=== PATIENT | male | born 1940 | race Caucasian/White ===

== ENCOUNTER 2019-01-06 21:46 | Inpatient (IN) ==
[2019-01-06] MEDS ORDERED: *HR* Ticagrelor 90 MG TABLET ONE (21:49)
[2019-01-06] MEDS ORDERED: *HR* Heparin 5,000 UNIT/ML VIAL ONE (21:49)
[2019-01-06] MEDS ORDERED: *HR* Ticagrelor 90 MG TABLET PO ONE (21:52)
--- NOTE | 2019-01-06 21:56 | Emergency Department Note ---
Disposition Clinical Impression: STEMI (ST elevation myocardial infarction) Qualifiers: Involved coronary artery: right coronary artery Qualified Code(s): I21.11 - ST elevation (STEMI) myocardial infarction involving right coronary artery Disposition: Admitted As Inpatient Condition: Fair Time of Disposition: 21:56 Chest Pain HPI - General Stated Complaint: STEMI Time Seen by Provider: 01/06/19 21:47 Source: patient, family, EMS Mode of arrival: EMS Limitations: no limitations Vital Signs Reviewed: Yes Nursing Notes Reviewed: Yes - History of Present Illness HPI Narrative: Patient presents to the ED as an [id number] STEMI alert. We were faxed an EKG that showed inferior STEMI. Patient is 78 years old with no previous history of FL presenting with 2 days of centralized chest pressure and heaviness. States that he thought it was reflux. It radiates into both of his jaws and into his left shoulder. Does seem to be worse with exertion. Has made him extremely fatigued and tired over the last couple of days. Some nausea but no vomiting. He does have a history of A. fib and is on Eliquis, but has not taken his medication in the last 48 hours - Related Data Home Medications Medication Instructions Recorded Confirmed Irbesartan [Avapro] 300 mg PO DAILY 05/28/16 01/06/19 Omeprazole [PriLOSEC] 40 mg PO DAILY 05/28/16 01/06/19 amLODIPine [Norvasc] 10 mg PO DAILY 05/28/16 01/06/19 hydroCHLOROthiazide 25 mg PO DAILY 05/28/16 01/06/19 [Hydrochlorothiazide] Apixaban [Eliquis] 5 mg PO BID 02/15/18 01/06/19 Aspirin [Lo-Dose Aspirin EC] 81 mg PO HS 01/06/19 01/06/19 Metoprolol XL (24 HR) Succ [Toprol 12.5 mg PO BID 01/06/19 01/06/19 Xl] Rosuvastatin Calcium 5 mg PO HS 01/06/19 01/06/19 Tamsulosin [Flomax] 0.4 mg PO HS 01/06/19 01/06/19 Allergies Allergy/AdvReac Type Severity Reaction Status Date / Time No Known Allergies Allergy Verified 05/28/16 07:47 Review of Systems: As reviewed in the HPI. All other systems reviewed are negative or normal. Chest Pain PMH - Past Medical History Medical history: Reports: atrial fibrillation, other Psychiatric history: Reports: no psych history - Social History Smoking Status: Former smoker Alcohol use: Reports: unknown Drug use: Reports: none Physical Exam CONSTITUTIONAL: [well appearing, alert and in no acute distress] EYES: [EOMI, clear conjunctiva, PERRLA] HENT: [Normocephalic, atraumatic, moist mucus membranes, normal oropharynx] NECK: [normal inspection, full ROM, trachea midline, no obvious swelling] PULMONARY: [normal lung sounds bilaterally, normal chest rise and fall, no respiratory distress or stridor, no wheezes, no rales, no rhonchi CARDIOVASCULAR: [Rate controlled A. fib, ST segment elevation seen on the monitor, normal heart sounds, no murmurs, distal extremities are warm and well perfused] GASTROINSTESTINAL: [soft, non-tender, non-rigid, non-distended, no guarding, no rebound, normal bowel sounds] GENITOURINARY/RECTAL: [deferred] NEUROLOGIC: [Alert, oriented x3, normal speech, moves all extremities] EXTREMITIES: [Normal inspection, full ROM, no tenderness, trace pedal edema, normal capillary refill] MUSCULOSKELETAL: [no gross deformities, atraumatic] SKIN: [No cyanosis, no diaphoresis, normal color, warm, no rash] PSYCHIATRIC: [normal mood and affect] Course Course Narrative: Patient presenting as an [id number] STEMI alert. We contacted the byproducts extractor, Dr. Decker. EMS states that they were about 30 minutes out. He received aspirin in the field. We will hold off on any nitroglycerin due to the large inferior involvement. He did receive morphine. Awaiting his arrival. - Consultations Consultation #1: We called Dr. Decker back to let him know that the patient has arrived sig nificantly earlier than expected. Repeat EKG shows atrial fibrillation with a rate of 70 and worsening inferior ischemic changes. Time: 21:51 Chest Pain - Medical Records Medical records reviewed: Yes I reviewed the patient's medical records. - Lab Data Lab results reviewed: Yes I reviewed the patient's lab results. - Radiology Data Radiology results reviewed: Yes I reviewed the patient's radiology results. - EKG Data EKG attestation: Yes I reviewed and interpreted this EKG. EKG results narrative: A. fib, rate 70, inferior ST segment elevation, depression in aVL, V2 and lead 1, acute FL Attestation Statement - Attestation Attestation: Resident Attestation: I examined this patient and my medical decision making was reviewed with the Resident Physician. I agree with the documented findings, disposition and treatment plan as described except to the extent set forth below. We independently had [id number] contact with the patient. Patient called squad for evaluation of chest pain. Worse over the last 2 days. Initially thought to be viral in nature. EKG was transmitted. Patient with si gnificant ST elevation strep inferior leads as well as reciprocal changes throughout the inferior leads. STEMI alert was activated approximately 20 minutes prior to patient arrival. On arrival the patient continues to have 8 out of 10 chest pain. Patient without previous CAD. Patient does have a history of A. fib and is on Eliquis but has not taken it for the last 2 days. Patient also has a history of hypertension. Patient did receive aspirin as well as morphine in route. The patient received Proventil and heparin within the emergency department and the cardiac catheter team was notified upon his arrival. Patient in moderate distress secondary to pain, regular rhythm, clear to auscultation bilaterally, abdomen soft nontender palpation.
[2019-01-06] MEDS ORDERED: *HR* Heparin 5,000 UNIT/ML VIAL IVP ONE (21:59)
[2019-01-06] MEDS ORDERED: ISOVUE-370 100 ML INFUS..BTL ONE (22:00)
[2019-01-06] MEDS ORDERED: 0.9 % Sodium Chloride 1,000 ML ONE (22:00)
[2019-01-06] MEDS ORDERED: Heparin 1,000 UNITS/500 mL 500 ML ONE (22:00)
[2019-01-06] MEDS ORDERED: *HR* Heparin 10,000 UNIT/10 ML VIAL ONE (22:00)
[2019-01-06] MEDS ORDERED: Nitroglycerin 1,000 MCG/10 ML VIAL IV ONE (22:00)
[2019-01-06] MEDS ORDERED: Verapamil 5 MG/2 ML VIAL ONE (22:05)
[2019-01-06] MEDS ORDERED: *HR* Heparin 5,000 UNIT/ML VIAL IVP PRN ×2 (22:06)
[2019-01-06] MEDS ORDERED: *HR* Midazolam HCl 2 MG/2 ML VIAL ONE (22:10)
[2019-01-06] MEDS ORDERED: *HR* FentaNYL (PF) 100 MCG/2 ML VIAL ONE (22:10)
[2019-01-06] MEDS ORDERED: Heparin 25,000 UNIT/250 ML D5W 25,000 UNIT/250 ML IV.SOLN IVC SCH (22:15)
[2019-01-06] MEDS ORDERED: Ondansetron 4 MG/2 ML VIAL ONE (22:21)
[2019-01-06 22:22] LABS: Basophils # 0.1 K/mcL (0.0-0.2); Basophils % 0.5 %; Eosinophils # 0.1 K/mcL (0.0-0.6); Eosinophils % 0.9 %; Immature Granulocytes % 0.5 % (0-4); Lymphocytes # 1.8 K/mcL (0.6-4.6); Lymphocytes % 13.8 %; Mean Corpuscular Hemoglobin 31.4 pg (28.0-33.3); Mean Corpuscular Volume 92.2 fL (83.0-100.0); Mean Platelet Volume 10.1 fL (9.4-12.4); Monocytes # 0.8 K/mcL (0.0-1.3); Monocytes % 6.2 %; Platelet Count 263 K/mcL (140-400); Red Cell Distribution Width 12.6 % (11.5-14.5); Segmented Neutrophils % 78.1 %
[2019-01-06] MEDS ORDERED: Tirofiban 12.5 MG/250ML 12.5 MG/250 ML BAG ONE (22:29)
[2019-01-06 22:35] LABS: INR 1.1; Prothrombin Time 12.6 Seconds (9.4-12.1)
[2019-01-06 22:51] LABS: BUN/Creatinine Ratio 17 (6-26); Blood Urea Nitrogen 14 mg/dL (8-23); Calcium 9.4 mg/dL (8.6-10.3); Carbon Dioxide 27 mEq/L (23-29); Chloride 102 mEq/L (98-107); Glucose 133 mg/dL (70-105); Magnesium 1.8 mg/dL (1.6-2.6); Osmolality,Calculated 292 (280-300); Potassium 3.8 mEq/L (3.5-5.1); Sodium 140 mEq/L (136-145); eGFR For Non-African Americans > 60 (> 60)
--- NOTE | 2019-01-06 22:53 | Pre-Sedation Evaluation ---
Pre-sedation evaluation - Pre-sedation checklist Date of procedure: 01/06/19 Procedure: [facility] Recent Vitals: Last Vital Signs Temp 97.8 F 01/06/19 21:49 Pulse 85 01/06/19 22:08 Resp 16 01/06/19 22:08 BP 118/70 01/06/19 22:08 Pulse Ox 98 01/06/19 22:08 H&P (including ROS) documented in medical record: Yes Previous reaction to sedatives/anesthetics: No Dietary Status: Clear fluids after Midnight Airway Assessment: Patient can open mouth completely, TMJ function normal Dentition: dentures removed ASA Classification *see protocol: CLASS IV-Severe systemic disease/constant threat to pt's life, [id number] to any of the above to indicate emergent Plan of Care: Pt appropriate candidate for procedure/moderate/conscious sedation, Risks/benefits of procedure/sedation discussed w/ patient/family, If not NPO; Risk of intake outweiged by necessity to perform procedure Cardiac Registry (Cardio Only) - Functional Capacity Functional Capacity: >=4 METS with symptoms - Clincal Frailty Scale Clinical Frailty Scale: Managing Well
[2019-01-06 22:54] LABS: Troponin I 0.09 ng/mL (< 0.04)
[2019-01-06] MEDS ORDERED: Ondansetron 4 MG/2 ML VIAL IVP PRN (22:54)
[2019-01-06] MEDS ORDERED: Nitroglycerin 0.4 MG TAB.SUBL SL PRN (22:54)
[2019-01-06] MEDS ORDERED: *HR* Morphine 2 MG/ML SYRINGE IVP PRN (22:54)
--- NOTE | 2019-01-06 22:54 | Cardiology History & Physical ---
Date of Encounter: 01/06/19 Time of Encounter: 23:00 Assessment and Plan (1) STEMI (ST elevation myocardial infarction) Current Visit: Yes Status: Acute The assessment and plan as outlined above was discussed with the patient and/or family members who expressed understanding and agreement. All questions were answered. Qualifiers: Involved coronary artery: other inferior wall coronary artery Qualified Code(s): I21.19 - ST elevation (STEMI) myocardial infarction involving other coronary artery of inferior wall History of Present Illness Chief complaint: chest pain HPI: Mr. Gomez is a 78 year old male with no previous cardiac history presents with 2 days of intermittent chest pain worsening tis evening associated with nausea. Past Med Surg Social Fam HX - Past Medical History Medical history: atrial fibrillation, other Additional medical history: Hypertension, SCC L dorsal arm, GERD. Atrial Fibrillation, ED, Lung abcess Psychiatric history: no psych history - Past Surgical History Additional surgical history: L hand surgery r/t trauma, LHC, Skin tags removed, Tonsillectomy & adenectomy - Social History Smoking Status: Former smoker Smokeless Tobacco Status: No Alcohol use: unknown Drug use: none Medications and Allergies Irbesartan [Avapro] 300 mg PO DAILY 05/28/16 [History] Omeprazole [PriLOSEC] 40 mg PO DAILY 05/28/16 [History] amLODIPine [Norvasc] 10 mg PO DAILY 05/28/16 [History] hydroCHLOROthiazide [Hydrochlorothiazide] 25 mg PO DAILY 05/28/16 [History] Apixaban [Eliquis] 5 mg PO BID 02/15/18 [History] Allopurinol [Zyloprim 100 MG] 100 mg PO DAILY 01/06/19 [History] Aspirin [Lo-Dose Aspirin EC] 81 mg PO HS 01/06/19 [History] Colchicine [Mitigare] 0.6 mg PO DAILY PRN 01/06/19 [History] Metoprolol XL (24 HR) Succ [Toprol Xl] 12.5 mg PO BID 01/06/19 [History] Rosuvastatin Calcium 5 mg PO HS 01/06/19 [History] Tamsulosin [Flomax] 0.4 mg PO HS 01/06/19 [History] Allergy/AdvReac Type Severity Reaction Status Date / Time No Known Allergies Allergy Verified 05/28/16 07:47 All Systems Review: The remainder of the systems were reviewed and are negative Physical Examination Vital Signs, Last 4 Hours Temp Pulse Resp BP Pulse Ox 01/06/19 22:08 85 16 118/70 98 01/06/19 21:49 97.8 F 75 14 108/83 96 Results 01/06/19 22:00 01/06/19 22:00 Lab Results 01/06/19 01/06/19 01/06/19 22:00 22:00 22:00 WBC 12.8 H Hgb 16.0 Hct 47.0 Plt Count 263 INR 1.1 Sodium 140 Potassium 3.8 Chloride 102 Carbon Dioxide 27 BUN 14 Creatinine 0.83 Glucose 133 H Calcium 9.4 Magnesium 1.8
[2019-01-06 22:56] LABS: Activated Partial Thrombo Time 158.3 Seconds (26.0-36.0)
[2019-01-06] MEDS ORDERED: Sennosides 8.6 MG TABLET PO PRN (22:58)
[2019-01-06] MEDS ORDERED: Tirofiban 12.5 MG/250ML 12.5 MG/250 ML BAG IVC SCH (23:00)
--- NOTE | 2019-01-07 00:20 | Invasive Diagnostic Lab Proc ---
Name: Vincent Gomez Date of Study: 01/06/2019 Date: 1940 Ht: 72.8in Medical Record#: [id number] Age: 78 Wt: 249.12lb Gender: Male BSA: 2.36 Order #: [id number] BMI: 33.02 Physicians Procedure Physician: Bakari Decker MD, [facility] Referring MD: Referring MD: Staff Name Position Time In Diana Taylor RT (R) Monitor 10:24 PM Tiesha Dominguez RN Doll Eye Setter 10:24 PM Jeb Grande RT (R) Scrub 10:25 PM Procedures Performed Procedure L HRT ARTERY/VENTRICLE ANGIO PRQ CARD REVASC NE 1 VSL Pre-Procedure Checklist Informed consent is complete signed and on chart. H&P is on chart. ID band is on and ID verified with patient. Patient NPO for procedure The procedure was described for the patient and questions were answered. Blood Pressure: 184/92 ECG is on chart. Rhythm: Atrial Fibrillation Plan of Care Patient will tolerate the procedure without complications. Adequate level of comfort will be maintained. Hemodynamics will remain stable Patient will recover from procedure without complications. Respiratory function will be maintained. Cardiac rhythm will remain stable. Patient temperature will be maintained. Patient and/or family have verbalized understanding of the procedure. Patient Education Chief Complaint/Reason for Test: Cardiac Cath Developmental Category: Geriatric (65+ years) Developmentally Appropriate for Age: Yes Learning Barriers: None Education Needs: Procedure Education Method: Verbal Information Taught: Cardiac Cath Educational Evaluation: Able to repeat information Intravenous Access Time IV Size Location DC'd Fluid/Drip Rate Units RN 10:20 PM 20g 1 1/4" Patent On Arrival Lt Arm 0.9NaCl 25 ml/hr 10:20 PM 18g 1 1/4" Patent On Arrival Rt Antecubital Allergies No Known Allergies Vital Signs Time BP (mmHg) HR (bpm) O2 Sat. RR (bpm) LOC 10:26 PM 184 / 92 78 95 % 20 4 = Oriented but drowsy 10:26 PM / % 4 = Oriented but drowsy 10:21 PM 184 / 92 78 95 % 23 10:26 PM 154 / 93 103 99 % 19 10:31 PM 147 / 88 82 92 % 16 10:36 PM 132 / 76 83 94 % 15 10:40 PM 130 / 78 80 88 % 21 10:45 PM 140 / 78 93 92 % 20 10:50 PM 139 / 84 87 97 % 19 10:55 PM 149 / 99 119 77 % 19 11:00 PM 163 / 99 105 92 % 21 11:06 PM 139 / 87 97 91 % 21 11:10 PM 140 / 100 108 95 % 27 11:15 PM 141 / 89 90 96 % 12 11:20 PM 137 / 93 98 93 % 16 Procedural Medications Time Medication Dose Units Method Given By 10:25 PM Oxygen 2 L/min nasal cannula Tiesha Dominguez RN 10:25 PM Versed 2 mg Intravenous Tiesha Dominguez RN 10:25 PM Fentanyl 50 mcg Intravenous Tiesha Dominguez RN 10:25 PM Zofran 8 mg Intravenous Tiesha Dominguez RN 10:26 PM Lidocaine 2% 0.5 ml Subcutaneous Bakari Decker MD, FAC 10:28 PM Nitroglycerin 200 mcg Verapamil 2.5 mg Intraarterial Bakari Decker MD, FACC 10:28 PM Lidocaine 2% 19 ml Subcutaneous Bakari Decker MD, FACC 10:37 PM Aggrastat Bolus: 58 ml Intravenous Tiesha Dominguez RN 10:37 PM Aggrastat 12.5mg/250ml 21 ml Intravenous Tiesha Dominguez RN Hawa Score Preprocedure Postprocedure Activity 2- Moves 4 extremities sustained head lift Activity 2- Moves 4 extremities sustained head lift Circulation 2- SBP +/= 20 points of pre-anesthetic level Circulation 2- SBP +/= 20 points of pre-anesthetic level Consciousness 2- Awake and alert oriented x 3 Consciousness 2- Awake and alert oriented x 3 O2 Saturation 2- Able to maintain O2 satruation of 92% on room air O2 Saturation 2- Able to maintain O2 satruation of 92% on room air Respiratory 2- Able to deep breathe and cough well Respiratory 2- Able to deep breathe and cough well Total Score 10 Total Score 10 Contrast Agent: Isovue Diagnostic Contrast: 80 ml Total Contrast: 80 ml Fluoro Dose: 56 mGy Activated Clotting Time Time Seconds to Clot 10:56 PM 167 10:56 PM 167 Procedure Log Time Note Enter By 10:20 PM CathStat 10:20 PM Vitals capture started with the following parameters, Patient=Adult, Interval=5 min, Initial Kegghwsm=855 mmHg, Deflation Rate=3 mmHg, Cuff placed on Right Arm 10:21 PM HR=78 bpm, FOJQ=495/92 mmhg, SpO2=95.0 %, Resp=23 B/min, EtCO2=36 mmHg 10:23 PM Pt arrived to garage laborer 1 at 22:23 [email or web address] 10:24 PM Pressure channel 1 zeroed. 10:24 PM Recorded ECG: HR=96 Condition=Condition 1 10:24 PM Reference ECG taken 10:24 PM Diana Taylor RT (R) Position: Monitor Time in: :24 [email or web address] 10:24 PM Tiesha Dominguez RN Position: Doll Eye Setter Time in: 22:24 [email or web address] 10:25 PM Jeb Grande RT (R) Position: Scrub Time in: 22:25 [email or web address] 10:25 PM Patient charges- Angio tray pack, Navilyst 3mm J, Pulse Oximetry and ACIST tubing and transducer [email or web address] 10:25 PM Case Delayed No [email or web address] 10:25 PM Hair removed from procedure site in holding area using clippers. Right wrist prepped with Chloraprep by Diana Taylor RT (R), then patient was draped. Skin intact. [email or web address] 10:25 PM Hair removed from procedure site in holding area using clippers. Right groin prepped with Chloraprep by Diana Taylor (R), then patient was draped. Skin intact. [email or web address] 10:25 PM Physician arrived 22:25 [email or web address] 10:25 PM Meet and pauline completed [email or web address] 10:25 PM Sign in performed according to hospital policy. Informed consent was obtained. [email or web address] 10:25 PM Procedure start 22:25 [email or web address] 10: PM Time: 22:25 Oxygen on at 2 L/min per nasal cannula by Tiesha Dominguez RN [email or web address] 10: PM Time: 22:25 Versed 2 mg Intravenous Given by Tiesha Dominguez RN [email or web address] 10: PM Time: 22:25 Fentanyl 50 mcg Intravenous Given by Tiesha Dominguez RN [email or web address] 10: PM Time: 22:25 Zofran 8 mg Intravenous Given by Tiesha Dominguez RN [email or web address] 10:26 PM VB=250 bpm, YZEJ=462/93 mmhg, SpO2=99.0 %, Resp=19 B/min, EtCO2=36 mmHg 10: PM Time: : Patient comfortable and pain free: Yes [email or web address] 10: PM Time: :LOC: 4 = Oriented but drowsy [email or web address] 10: PM Time out was performed according to hospital policy. Conscious sedation and anesthesia was achieved (see medication log with in this report above) [email or web address] 10: PM Critical cardiac patient with acute NE was brought emergently to the cardiac labor expediter for immediate coronary angiography and intervention if clinically indicated. [email or web address] 10: PM Time: : 0.5 ml Lidocaine 2% to right radial Subcutaneous Given by Bakari Decker MD, [facility] [email or web address] 10: PM Access obtained by percutaneous puncture. 6Fr 10cm Terumo Glidesheath sheath placed in artery. [id number] [email or web address] 10: PM Time: : Patient given , 200 mcg Nitroglycerin, and 2.5 mg Verapamil Intraarterial by Bakari Decker MD, [facility]. This is given to reduce risk of vessel spasm and thrombosis. [email or web address] 10: PM Unable to advance catheter. [email or web address] 10: PM Time: : 19 ml Lidocaine 2% to right groin Subcutaneous Given by Bakari Decker MD, [facility] [email or web address] 10:30 PM Access obtained by percutaneous puncture. 6Fr 10cm Terumo [place] sheath placed in right Femoral artery. [id number] [email or web address] 10:30 PM 6Fr JR 4 Runway guide catheter was used to cannulate the PCI vessel successfully. reused? No [email or web address] 10:30 PM Inflation device was opened. [email or web address] 10:30 PM 0.035 145cm Navilyst 3mmJ wire [id number] [email or web address] 10:31 PM HR=82 bpm, YJTR=931/88 mmhg, SpO2=92.0 %, Resp=16 B/min, EtCO2=34 mmHg 10:31 PM Catheter removed [email or web address] 10:31 PM 6Fr 3DRC Har[place]on Bright-Tip guide catheter was used to cannulate the PCI vessel successfully. reused? No [email or web address] 10:33 PM Recorded Pressure: Ao, HR=91, Condition=Condition 1 (Aorta) Ao 75/15/42 10:33 PM .014 Arlee 190cm guide wire across target lesion- successful. reused? No [email or web address] 10:34 PM 2.5 mm x 12 mm Emerge Monorail balloon across target lesion- successful. reused? No [email or web address] 10:34 PM Balloon inflated @ 14 ced for 11 seconds [email or web address] 10:35 PM Balloon inflated @ 14 ced for 24 seconds [email or web address] 10:36 PM HR=83 bpm, RFEL=859/76 mmhg, SpO2=94.0 %, Resp=15 B/min, EtCO2=35 mmHg, Comment=A-fib 10:37 PM Time: 22:37 Aggrastat Bolus: 58 ml Intravenous Given by Tiesha Dominguez RN Curiel pump [email or web address] 10:37 PM Time: 22:37 Aggrastat 12.5mg/250ml 21 ml Intravenous Given by Tiesha Dominguez RN Curiel pump [email or web address] 10:38 PM 3.5mm x 16mm Rebel [employer] bare metal stent across target lesion- successful Lot #[id number] [email or web address] 10:38 PM Stent deployed @ 16 ced for 16 seconds [email or web address] 10:40 PM Stent delivery system removed intact. [email or web address] 10:40 PM Recorded Pressure: Ao, HR=87, Condition=Condition 1 (Aorta) Ao 110/61/84 10:40 PM HR=80 bpm, KDNP=392/78 mmhg, SpO2=88.0 %, Resp=21 B/min, EtCO2=36 mmHg, Comment=A-fib 10:41 PM Time: 22:26LOC: 4 = Oriented but drowsy [email or web address] 10:41 PM Time: 22:26 Patient comfortable and pain free: Yes [email or web address] 10:41 PM 4.0 mm x 12mm NC Trek Rx balloon across target lesion- successful. reused? No [email or web address] 10:42 PM Balloon inflated @ 14 ced for 16 seconds [email or web address] 10:43 PM Balloon catheter removed intact. [email or web address] 10:43 PM Guide wire removed intact. [email or web address] 10:43 PM Guide catheter removed intact. [email or web address] 10:43 PM 5Fr FL 4 catheter inserted over the wire [facility] [email or web address] 10:44 PM LCA angiography performed in multiple views. [email or web address] 10:44 PM Recorded Pressure: Ao, HR=84, Condition=Condition 1 (Aorta) Ao 98/63/80 10:45 PM HR=93 bpm, IYFI=919/78 mmhg, SpO2=92.0 %, Resp=20 B/min, EtCO2=35 mmHg, Comment=A-fib 10:46 PM Lesion found in Mid LAD. Pre Stenosis: 70 Pre INGA Flow: 3: Complete and Brisk Flow/Perfusion [email or web address] 10:47 PM Catheter removed [email or web address] 10:47 PM Recorded Pressure: LV, HR=91, Condition=Condition 1 (Left Ventricle) LV 112/6/21 10:47 PM 5Fr Pigtail catheter inserted over the wire DNC [email or web address] 10:47 PM Catheter crossed the aortic valve and was selectively placed in the left ventricle. Pressures recorded on pullback for left heart catheterization. [email or web address] 10:47 PM Recorded Pressure: LV, Ao, HR=99, Condition=Condition 1 (Left Ventricle) LV 123/5/42, (Aorta) Ao 113/46/79 10:48 PM Bolus angiogram of left Ventricle complete: 8 ml/sec for a total of 24 mls [email or web address] 10:48 PM Catheter removed [email or web address] 10:48 PM Lesion found in Proximal Circumflex. Pre Stenosis: 60 Pre INGA Flow: 3: Complete and Brisk Flow/Perfusion [email or web address] 10:50 PM Bolus angiogram of right Femoral complete: 4 ml/sec for a total of 7 mls [email or web address] 10:50 PM HR=87 bpm, HZMG=176/84 mmhg, SpO2=97.0 %, Resp=19 B/min, EtCO2=36 mmHg, Comment=A-fib 10:51 PM Procedure completed at 22:51 01/06/2019 [email or web address] 10:51 PM Coronary Dominance: right [email or web address] 10:51 PM Did you address INGA flow and Dominance? Yes [email or web address] 10:52 PM Sign out completed: Radiation Dose 557.70 mGy, 55.7 Gy/cm2 Fluoro Time: 4.8 Isovue 370 - 200ml contrast 80 ml given by Bakari Decker MD, [facility]. Complications: None. The patient was discharged out of the labor expediter in stable condition. Sedation minutes 30. Cardiac Rehab Consult needed: Yes. Confirmed administered medications: Yes [email or web address] 10:52 PM Isovue 370 - 200ml,1 Bottle(s) used. [email or web address] 10:52 PM Sheath left in place to be pulled on floor/holding areaV+Pad [email or web address] 10:52 PM 14 ml air in Vasc Band. [email or web address] 10:52 PM Estimated Blood Loss: minimal [email or web address] 10:52 PM Post ECG Atrial Fibrillation [email or web address] 10:52 PM Post Blood Pressure 139/84 [email or web address] 10:52 PM 22:52 Post Pulses Bilateral DP & PT 1+ [email or web address] 10:52 PM Information taught Cardiac Cath, PCI, and Vasc Band [email or web address] 10:52 PM Education needs Procedure, Plan of Care, and Disease Process [email or web address] 10:52 PM Learning barriers :None [email or web address] 10:52 PM Education Methods Verbal [email or web address] 10:52 PM Arterial sheath pulled, Vasc Band closure device used and was Successful S/N. [email or web address] 10:52 PM Education evaluation Able to repeat information [email or web address] 10:52 PM Site status No bleeding/hematoma - Rt Groin as reported by Jeb Grande RT (R) at 22:52 [email or web address] 10:55 PM OW=346 bpm, RLYN=582/99 mmhg, SpO2=77.0 %, Resp=19 B/min, Comment=A-fib 10:56 PM At 22:56 the ACT was 167 seconds. [email or web address] 10:56 PM Delay to floor Bed availability [email or web address] 10:56 PM Family placed in consult room. [email or web address] 10:56 PM Complications: None [email or web address] 10:[address] Decker about ACT and he instructed to pull sheath from Rt groin [email or web address] 11:00 PM Arterial sheath pulled using manual compression and V+ Pad for 15 minutes by Jeb Grande RT (R) [email or web address] 11:00 PM IN=657 bpm, XDLR=439/99 mmhg, SpO2=92.0 %, Resp=21 B/min, EtCO2=35 mmHg, Comment=A-fib 11:06 PM HR=97 bpm, EJSO=258/87 mmhg, SpO2=91.0 %, Resp=21 B/min, EtCO2=36 mmHg, Comment=A-fib 11:10 PM AI=081 bpm, QZFK=554/100 mmhg, SpO2=95.0 %, Resp=27 B/min 11:14 PM Site status No bleeding/hematoma - Rt Groin as reported by Jeb Grande RT (R) at 23:14 3-5 cm [email or web address] 11:15 PM Pressure to Rt groin continued by Jeb Grande RTR for an additional 5 mins. [email or web address] 11:15 PM HR=90 bpm, DWMR=669/89 mmhg, SpO2=96.0 %, Resp=12 B/min, EtCO2=35 mmHg, Comment=A-fib 11:20 PM Site status No bleeding/hematoma - Rt Groin as reported by Jeb Grande RT (R) at 23:20 [email or web address] 11:20 PM Opsite applied [email or web address] 11:20 PM Waiting for ICU bed to be cleaned. [email or web address] 11:20 PM HR=98 bpm, AMTF=411/93 mmhg, SpO2=93.0 %, Resp=16 B/min, EtCO2=35 mmHg, Comment=A-fib 11:25 PM Vitals capture stopped. 11:31 PM Report given to Stanley RUIZ Pt taken to ICU Room #12. 23:30 [email or web address] 11:48 PM Room ready [email or web address] 11:49 PM Patient out of room: 23:49 ICU 12 [email or web address] Complications Complication None None Hemodynamics Pressures Site Systolic/A Wave Diastolic/V Wave Mean AO 75 15 42 AO 110 61 84 AO 98 63 80 LV 112 6 21 LV 123 5 42 AO 113 46 79 Post Procedure Information Blood Pressure: 139/84 mmHg Rhythm: Atrial Fibrillation Post procedural instructions were given Closure Device Time Device Success/Fail 01/06/2019 10:52:00 PM Manual Compression yes Site Checks Time Location Status Staff Sheath In? Note 10:52 PM Rt Groin No bleeding/hematoma Jeb Grande RT (R) 11:14 PM Rt Groin No bleeding/hematoma Jeb Grande RT (R) 3-5 cm 11:20 PM Rt Groin No bleeding/hematoma Jeb Grande RT (R) Pulses Time Site Pre-Procedure Post-Procedure Note 01/06/2019 10:20:00 PM Bilateral DP 2+ 2+ 01/06/2019 10:20:00 PM Bilateral radial 2+ 10:52:00 PM Bilateral PT 1+ 1+ Updated by Diana Taylor RT(R) on 01/06/2019 11:58:41 PM electronically signed on 01/06/2019 11:59:13 PM with status of Final
[2019-01-07 06:36] LABS: Basophils % 0.2 %; Eosinophils % 0.1 %; Hemoglobin 15.3 g/dL (12.9-16.9); Immature Granulocytes % 0.4 % (0-4); Lymphocytes # 0.8 K/mcL (0.6-4.6); Lymphocytes % 5.1 %; Mean Corpuscular HGB Conc 34.8 g/dL (31.6-35.5); Mean Corpuscular Volume 89.2 fL (83.0-100.0); Mean Platelet Volume 10.4 fL (9.4-12.4); Monocytes # 0.7 K/mcL (0.0-1.3); Monocytes % 4.9 %; Neutrophils # 13.4 K/mcL (1.6-8.9); Platelet Count 223 K/mcL (140-400); Red Blood Count 4.93 M/mcL (4.19-5.50); Segmented Neutrophils % 89.3 %
[2019-01-07 06:41] LABS: BUN/Creatinine Ratio 20 (6-26); Blood Urea Nitrogen 15 mg/dL (8-23); Calcium 9.3 mg/dL (8.6-10.3); Carbon Dioxide 25 mEq/L (23-29); Chloride 104 mEq/L (98-107); Glucose 115 mg/dL (70-105); Osmolality,Calculated 286 (280-300); Potassium 3.7 mEq/L (3.5-5.1); Sodium 137 mEq/L (136-145); eGFR For Non-African Americans > 60 (> 60)
[2019-01-07] MEDS: Aspirin 81 MG TAB.CHEW PO SCH (08:04)
[2019-01-07] MEDS ORDERED: Metoprolol XL (24 HR) Succ 25 MG TAB.ER.24H PO SCH (09:30)
[2019-01-07] MEDS ORDERED: Phenylephrine Nasal 0.5% 15 ML BOTTLE NS PRN (10:39)
[2019-01-07] MEDS ORDERED: Perflutren Lipid Microsphere 1.3 ML in 0.9 % Sodium Chloride 8.7 ML IVP ONE (10:44)
[2019-01-07] MEDS ORDERED: Perflutren Lipid Microsphere 2 ML VIAL ONE (10:51)
[2019-01-07] MEDS ORDERED: Phenylephrine Nasal 0.5% 15 ML BOTTLE NS SCH (12:00)
--- NOTE | 2019-01-07 13:16 | Cardiology Progress Note ---
Date of Encounter: 01/07/19 Time of Encounter: 13:14 Assessment and Plan (1) STEMI (ST elevation myocardial infarction) Current Visit: Yes Status: Acute Presented late evening of 01/06 as inferior STEMI. Taken urgently to general laborer. [facility] revealed severe one vessel CAD. EF 50%. Patient had successful PTCA/Bare Metal Stent placement in the mid RCA. DAPT (ASA and Plavix) uninterrupted x 1 month. Pt will be on triple therapy--Coumadin (A-Fib). Plan to stop one of his antiplatelet agents after 1 month. Pt aware of increased bleeding risk on triple therapy. H&H stable. Continue BB, Statin. Right femoral access site healing well. No bleeding, hematoma or ecchymosis noted. Restrictions discussed. TTE pending to evaluate structure and function. Stepped down to 2N today. Qualifiers: Involved coronary artery: other inferior wall coronary artery Qualified Code(s): I21.19 - ST elevation (STEMI) myocardial infarction involving other coronary artery of inferior wall (2) A-fib Current Visit: Yes Status: Acute Known hx of PAF. 12 hr tele AVG HR 101. HR 80s at bedside. Continue BB. Hx of DCCV in 2016. Follows outpt with Dr. Stanley Patel. Anticoagulated on Eliquis. As above, will be on triple therapy x 1 month. Aware of increased bleeding risk. Qualifiers: Atrial fibrillation type: paroxysmal Qualified Code(s): I48.0 - Paroxysmal atrial fibrillation Discussion w patient/family: The assessment and plan as outlined above was discussed with the patient and/or family members who expressed understanding and agreement. All questions were ans wered. Thank you for involving us in the care of your patient. Please call with any questions. I will discuss all the above with Dr. Rueda and make changes as necessary. Subjective Principal diagnosis: STEMI Interval history: Pt reports single episode of brief chest discomfort last night after [facility]. No recurrence. No acute complaints currently. Objective Vital Signs, Last 4 Hours Temp Pulse Resp BP Pulse Ox 01/07/19 11:52 98.1 F 91 20 125/63 97 Vital Signs Temp Pulse Resp BP Pulse Ox 01/07/19 11:52 98.1 F 91 20 125/63 97 01/07/19 08:00 97.5 F L 104 20 94 01/07/19 07:37 86 18 115/68 97 01/07/19 06:00 86 15 113/68 96 01/07/19 05:00 85 19 119/58 95 01/07/19 04:00 97.7 F 79 16 106/69 96 01/07/19 03:30 89 16 118/65 96 01/07/19 03:00 83 20 113/64 95 01/07/19 02:30 79 15 99/67 96 01/07/19 02:00 82 16 109/66 94 01/07/19 01:30 79 16 101/55 94 01/07/19 01:00 103 19 129/92 90 01/07/19 00:45 89 14 129/94 95 01/07/19 00:30 80 20 126/75 95 01/07/19 00:15 85 15 124/75 96 01/07/19 00:09 98.2 F 01/07/19 00:00 89 17 132/77 96 01/06/19 22:08 85 16 118/70 98 01/06/19 21:49 97.8 F 75 14 108/83 96 Intake and Output 01/06/19 01/07/19 01/07/19 23:59 07:59 15:59 Intake Total 148 / 148 200 / 200 Output Total 150 / 150 Balance -2 / -2 200 / 200 Intake: IV Fluids 148 / 148 Aggrastat 12.5 MG/250 ML 12.5 148 / 148 mg In 250 ml @ 0.15 MCG/KG/MIN 20.519 mls/hr IVC .[id number] [facility] Rx#:[id number] Oral 0 / 0 200 / 200 Output: Urine 150 / 150 Other: Meal Breakfast Percent of Meal Consumed 100% Weight 113.993 kg 112.6 kg Blood Glucose* 110 127 Patient Weight 01/07/19 23:59 Weight 112.6 kg General: Conversant, No Apparent Distress HEENT: Atraumatic, Normocephaly, Mucus Membranes Moist Neck: No JVD, Normal carotid pulses Cardiac: Other (irregularly irregular) Lungs: Normal Breath Sounds, No Wheeze, Rales, Rhonchi Neuro: Alert and responsive, No focal deficits noted Abdomen: Soft, Non-Tender Skin: No rashes noted on visualized skin Musculoskeletal: No Chest Wall Tenderness Extremities: No Clubbing, No Cyanosis, No Edema, Normal Pulses Results 01/07/19 05:31 01/07/19 05:31 Lab Results 01/06/19 01/06/19 01/06/19 22:00 22:00 22:00 WBC 12.8 H Hgb 16.0 Hct 47.0 Plt Count 263 INR 1.1 APTT 158.3 H* Sodium 140 Potassium 3.8 Chloride 102 Carbon Dioxide 27 BUN 14 Creatinine 0.83 Glucose 133 H Calcium 9.4 Magnesium 1.8 Troponin I 0.09 H* 01/07/19 01/07/19 05:31 05:31 WBC 15.0 H Hgb 15.3 Hct 44.0 Plt Count 223 INR APTT Sodium 137 Potassium 3.7 Chloride 104 Carbon Dioxide 25 BUN 15 Creatinine 0.74 Glucose 115 H Calcium 9.3 Magnesium Troponin I Short CBC 01/07/19 01/06/19 Range/Units 05:31 22:00 WBC 15.0 H 12.8 H (4.3-11.1) K/mcL Hgb 15.3 16.0 (12.9-16.9) g/dL Hct 44.0 47.0 (37.5-50.1) % Plt Count 223 263 (140-400) K/mcL Neutrophils # 13.4 H 10.0 H (1.6-8.9) K/mcL BMP 01/07/19 01/06/19 Range/Units 05:31 22:00 Sodium 137 140 (136-145) mEq/L Potassium 3.7 3.8 (3.5-5.1) mEq/L Chloride 104 102 (98-107) mEq/L Carbon Dioxide 25 27 (23-29) mEq/L BUN 15 14 (8-23) mg/dL Creatinine 0.74 0.83 (0.70-1.30) mg/dL Glucose 115 H 133 H (70-105) mg/dL Calcium 9.3 9.4 (8.6-10.3) mg/dL Cardiac Enzymes 01/06/19 Range/Units 22:00 Troponin I 0.09 H* (< 0.04) ng/mL Impressions Chest X-Ray 01/06/19 22:07 IMPRESSION: No acute cardiopulmonary process D/ / Dale Hampton / Dale Hampton Interpreting Provider: Dale Hampton Active Medications Acetaminophen (Tylenol) 500 mg PO Q6HR PRN PRN Reason: Mild Pain Stop: 07/08/19 22:55 Aspirin (Aspirin) 81 mg PO DAILY [facility] Stop: 07/09/19 09:01 Last Admin: 01/07/19 08:04 Dose: 81 mg Atorvastatin Calcium (Lipitor) 80 mg PO HS [facility] Stop: 07/09/19 21:01 Clopidogrel Bisulfate (Plavix) 75 mg PO DAILY [facility] Stop: 07/11/19 09:01 Clopidogrel Bisulfate (Plavix) 300 mg PO NOW ONE Stop: 01/07/19 22:58 Diphenhydramine HCl (Benadryl) 25 mg PO HS PRN PRN Reason: Insomnia Stop: 07/08/19 22:59 Hydralazine HCl (Hydralazine) 20 mg IVP Q6HR PRN PRN Reason: Hypertension Stop: 07/08/19 23:00 Metoprolol Succinate (Toprol Xl) 12.5 mg PO DAILY [facility] Stop: 07/09/19 09:31 Last Admin: 01/07/19 11:16 Dose: 12.5 mg Morphine Sulfate (Morphine Sulfate) 4 mg IVP Q3H PRN PRN Reason: Severe Pain (7-10) Stop: 07/08/19 22:55 Nitroglycerin (Nitroglycerin) 0.4 mg SL Q5M PRN PRN Reason: Chest Pain Stop: 07/08/19 22:55 Ondansetron HCl (Zofran) 4 mg IVP Q8HR PRN PRN Reason: Nausea And Vomiting Stop: 07/08/19 22:55 Phenylephrine HCl (Daniel-Synephrine) 2 spray NS Q4HR PRN PRN Reason: congestion Stop: 07/09/19 12:01 Senna (Senna) 17.2 mg PO HS PRN PRN Reason: Constipation Stop: 07/08/19 22:59 - Imaging and Cardiology Echo: pending Cardiac cath: report reviewed - EKG Interpretation EKG results cardiology: other (12 hr tele AVG HR 101, A-Fib) Consult Discharge Plan - Plan Referrals: Bakari Decker MD [Partnered Physician] - (office will call patient at home with follow up appointment) Félix Alva [Partnered Physician] - 01/16/19 10:00 am
--- NOTE | 2019-01-07 14:10 | Electrocardiograph Report ---
Test Date: 2019-01-06 Pat Name: Vincent Gomez Department: [id number] Room: 2N11 Gender: M [employer]: : 1940 Requested By: Maldonado Black Order Number: [id number] Reading MD: Yoseph Carmen Measurements Intervals [place] Rate: 70 P: PA: QRS: 36 QRSD: 108 T: 105 QT: 386 QTc: 417 Interpretive Statements Atrial fibrillation Inferior infarct, acute (RCA) Lateral leads are also involved Probable RV involvement, suggest recording right precordial leads Electronically Signed On 01-07-2019 14:08:44 EDT by Yoseph Carmen
[2019-01-07] MEDS: hydroCHLOROthiazide 25 MG TABLET PO SCH (18:23)
[2019-01-07] MEDS: Apixaban 5 MG TABLET PO SCH (20:24)
[2019-01-07] MEDS: Metoprolol XL (24 HR) Succ 25 MG TAB.ER.24H PO SCH (20:26)
[2019-01-08] MEDS ORDERED: Tirofiban 0.05 MG/1 ML (BOLUS FROM BAG) IV ONE (01:12)
[2019-01-08] MEDS ORDERED: Tirofiban 12.5 MG/250ML 12.5 MG/250 ML BAG IVC SCH (01:15)
[2019-01-08 06:00] LABS: Basophils % 0.4 %; Eosinophils # 0.1 K/mcL (0.0-0.6); Eosinophils % 0.8 %; Hematocrit 41.7 % (37.5-50.1); Immature Granulocytes % 0.4 % (0-4); Lymphocytes # 1.6 K/mcL (0.6-4.6); Lymphocytes % 14.5 %; Mean Corpuscular HGB Conc 33.6 g/dL (31.6-35.5); Mean Corpuscular Hemoglobin 30.8 pg (28.0-33.3); Mean Corpuscular Volume 91.6 fL (83.0-100.0); Mean Platelet Volume 10.4 fL (9.4-12.4); Monocytes % 8.6 %; Neutrophils # 8.5 K/mcL (1.6-8.9); Platelet Count 214 K/mcL (140-400); Red Blood Count 4.55 M/mcL (4.19-5.50); Red Cell Distribution Width 13.2 % (11.5-14.5); Segmented Neutrophils % 75.3 %
[2019-01-08 06:19] LABS: BUN/Creatinine Ratio 19 (6-26); Blood Urea Nitrogen 16 mg/dL (8-23); Carbon Dioxide 27 mEq/L (23-29); Chloride 104 mEq/L (98-107); Glucose 109 mg/dL (70-105); Osmolality,Calculated 286 (280-300); Potassium 3.2 mEq/L (3.5-5.1); Sodium 137 mEq/L (136-145); eGFR For Non-African Americans > 60 (> 60)
[2019-01-08] MEDS ORDERED: OXYCODONE Oral CONC 10 MG/0.5 ML ORAL.SYG SL PRN (09:15)
[2019-01-08] MEDS: Apixaban 5 MG TABLET PO SCH (10:00)
[2019-01-08] MEDS: hydroCHLOROthiazide 25 MG TABLET PO SCH (10:00)
[2019-01-08] MEDS: Aspirin 81 MG TAB.CHEW PO SCH (10:01)
[2019-01-08] MEDS: Metoprolol XL (24 HR) Succ 25 MG TAB.ER.24H PO SCH (10:06)
--- NOTE | 2019-01-08 11:10 | Discharge Summary ---
Orders not resulted at time of discharge: Pending orders 01/06/19 22:54 ECG 12 lead ECG [ECG] Stat 01/07/19 06:00 ECG 12 lead ECG [ECG] AM 0600 01/07/19 07:00 ECG 12 lead ECG [ECG] Routine Date of Encounter: 01/08/19 Time of Encounter: 11:03 - Discharge Diagnosis (1) STEMI (ST elevation myocardial infarction) Priority: Primary Status: Acute Qualifiers: Involved coronary artery: other inferior wall coronary artery Qualified Code(s): I21.19 - ST elevation (STEMI) myocardial infarction involving other coronary artery of inferior wall (2) A-fib Priority: Secondary Status: Acute Qualifiers: Atrial fibrillation type: paroxysmal Qualified Code(s): I48.0 - Paroxysmal atrial fibrillation - Hospital Course Hospital course: Mr. Gomez is a 78 year old male with past medical history significant for atrial fibrillation on eliquis, HLD, and HTN who presented with chest pain. He was found to have acute STEMI. Emergent LHC revealed severe RCA stenosis. He received BMS. There was moderate non-obstructive CAD remaining. TTE showes EF 50% with mild segmental dysfunction. Today he is ambulating with no chest pain or SOB. He remains in rate controlled atrial fibrillation. Telemetry review show s avg HR 87 bpm. Min HR was 51 bpm with 2.2 sec pause (afib) at 0530am. No concerning daytime bradycardia seen. No VT. Discussed findings and POC with donna Tang for discharge home today with close out-pt f/u. His right femoral access site is without hematoma, redness, or drainage. Soft ecchymosis noted. Reportable symptoms reviewed. Importance of DAPT with asa and plavix uninterrupted with stopping asa in one month. Continue plavix for one year. He will be on triple therapy for one month due to history of afib on eliquis. Denies history of bleeding problems. Reviewed with patient and they voiced understanding. Activity restrictions reviewed as stated above. Cardiac rehab discussed and he will consider. Out-pt f/u will be made with Dr. Decker in one week. - Time Spent with Patient Total time spent providing and/or coordinating discharge services: Greater than 30 minutes Specific discharge activities: 1Hr d/c summary, med rec, activity restrictions - Discharge Medications Prescriptions: New Clopidogrel [Plavix] 75 mg PO DAILY #30 tablet Continue amLODIPine [Norvasc] 10 mg PO DAILY Omeprazole [PriLOSEC] 40 mg PO DAILY Irbesartan [Avapro] 300 mg PO DAILY hydroCHLOROthiazide [Hydrochlorothiazide] 25 mg PO DAILY Aspirin [Lo-Dose Aspirin EC] 81 mg PO HS Metoprolol XL (24 HR) Succ [Toprol Xl] 12.5 mg PO BID Rosuvastatin Calcium 5 mg PO HS Tamsulosin [Flomax] 0.4 mg PO HS Allopurinol [Zyloprim 100 MG] 100 mg PO DAILY Colchicine [Mitigare] 0.6 mg PO DAILY PRN PRN Reason: Gout Phenylephrine HCl [Daniel-Synephrine] 2 - 3 spray NS Q4HR PRN PRN Reason: congestion Apixaban [Eliquis] 5 mg PO BID Home Medications: Irbesartan [Avapro] 300 mg PO DAILY 05/28/16 [History] Omeprazole [PriLOSEC] 40 mg PO DAILY 05/28/16 [History] amLODIPine [Norvasc] 10 mg PO DAILY 05/28/16 [History] hydroCHLOROthiazide [Hydrochlorothiazide] 25 mg PO DAILY 05/28/16 [History] Apixaban [Eliquis] 5 mg PO BID 02/15/18 [History] Allopurinol [Zyloprim 100 MG] 100 mg PO DAILY 01/06/19 [History] Aspirin [Lo-Dose Aspirin EC] 81 mg PO HS 01/06/19 [History] Colchicine [Mitigare] 0.6 mg PO DAILY PRN 01/06/19 [History] Metoprolol XL (24 HR) Succ [Toprol Xl] 12.5 mg PO BID 01/06/19 [History] Rosuvastatin Calcium 5 mg PO HS 01/06/19 [History] Tamsulosin [Flomax] 0.4 mg PO HS 01/06/19 [History] Phenylephrine HCl [Daniel-Synephrine] 2 - 3 spray NS Q4HR PRN 01/07/19 [History] Clopidogrel [Plavix] 75 mg PO DAILY #30 tablet 01/08/19 [Rx] Allergies/Adverse Reactions: Allergy/AdvReac Type Severity Reaction Status Date / Time No Known Allergies Allergy Verified 05/28/16 07:47 Date of admission: 01/06/19 23:08 Primary care physician: Abhishek Art MD Consults: 01/06/19 22:54 Consult to Cardiac Rehabilitation-Phase1 [CONS] Routine Comment: Reason for Consult: AMI Call Completed: Yes Consult to Nurse Navigator [CONS] Routine Comment: Discharging clinician: Kristopher Bacon Anticipated date of discharge: 01/08/19 Physical Examination Vital Signs, Last 4 Hours Temp Pulse Resp BP Pulse Ox 01/08/19 08:15 98.3 F 77 20 109/79 91 01/08/19 07:35 98.3 F 77 20 109/79 91 General: Conversant, No Apparent Distress HEENT: Atraumatic, Normocephaly, Mucus Membranes Moist Neck: No JVD, Normal carotid pulses Cardiac: Reg Rate and Rhythm, Normal S1 and S2, No Murmur Lungs: Normal Breath Sounds, No Wheeze, Rales, Rhonchi Neuro: Alert and responsive, No focal deficits noted Abdomen: Soft, Non-Tender Skin: No rashes noted on visualized skin Musculoskeletal: No Chest Wall Tenderness Extremities: No Clubbing, No Cyanosis, No Edema, Normal Pulses, Other (right femoral access with ecchymosis. No hematoma. ) - Patient Status Disposition: Home, Self-Care Condition: Fair Functional capacity at discharge: independent ambulation Overall status at discharge: patient is progressing back to baseline - Discharge Instructions Follow Up With: Bakari Decker MD [Partnered Physician] - (office will call patient at home with follow up appointment) Félix Alva [Partnered Physician] - 01/16/19 10:00 am Forms: ED Satisfaction Letter - Diet and Activity Activity: increase activity as tolerated
--- NOTE | 2019-01-08 14:27 | Event Note ---
Date of Encounter: 01/08/19 Time of Encounter: 14:24 - Cardiology Event Note Mr. Gomez c/o knot on his outer left upper thigh. Noted raised knot that is the size of a grape that is firm and non-mobile. Patient states that he did not notice prior to admission. Discussed with Dr. Carmen, we will order US to assess for DVT or hematoma. Of note LHC access wis in the right groin. May be cyst that patient did not notice before. He is on eliquis. If US negative recommended that he f/u with his PCP for further evaluation.
[2019-01-08 15:10] VITALS: BP 128/97
== END 2019-01-08 18:20 | disposition home or self-care (01) | DRG 249 ==
LOC: EMEROOARM 21:46 → ICNU 21:46 → OBSVTOIN 23:08 → ICNU 23:11 → 2NNU 01-07 08:38
PROVIDERS: ADMIT Emergency Medicine; ATTEND Internal Medicine

== ENCOUNTER 2019-10-05 08:10 | Observation (INO) ==
[2019-10-05] MEDS ORDERED: Aspirin 81 MG TAB.CHEW PO ONE (08:24)
[2019-10-05 08:48] LABS: Basophils % 0.3 %; Eosinophils % 0.3 %; Hematocrit 46.6 % (37.5-50.1); Hemoglobin 16.2 g/dL (12.9-16.9); Immature Granulocytes % 0.3 % (0-4); Lymphocytes # 0.8 K/mcL (0.6-4.6); Lymphocytes % 7.1 %; Mean Corpuscular HGB Conc 34.8 g/dL (31.6-35.5); Mean Corpuscular Hemoglobin 31.1 pg (28.0-33.3); Mean Corpuscular Volume 89.4 fL (83.0-100.0); Mean Platelet Volume 10.3 fL (9.4-12.4); Monocytes % 8.6 %; Neutrophils # 9.8 K/mcL (1.6-8.9); Platelet Count 241 K/mcL (140-400); Red Blood Count 5.21 M/mcL (4.19-5.50); Red Cell Distribution Width 12.9 % (11.5-14.5); Segmented Neutrophils % 83.4 %; White Blood Count 11.7 K/mcL (4.3-11.1)
[2019-10-05] MEDS: Nitroglycerin 0.4 MG TAB.SUBL SL SCH ×2 (08:52→09:26)
[2019-10-05 08:53] LABS: INR 1.5; Prothrombin Time 16.6 Seconds (9.4-12.1)
[2019-10-05 08:56] LABS: Activated Partial Thrombo Time 36.4 Seconds (26.0-36.0)
[2019-10-05 09:08] LABS: BUN/Creatinine Ratio 15 (6-26); Blood Urea Nitrogen 16 mg/dL (8-23); Calcium 9.9 mg/dL (8.6-10.3); Carbon Dioxide 28 mEq/L (23-29); Chloride 101 mEq/L (98-107); Glucose 128 mg/dL (70-105); Osmolality,Calculated 291 (280-300); Potassium 3.5 mEq/L (3.5-5.1); Sodium 139 mEq/L (136-145); eGFR For African Americans > 60 (> 60); eGFR For Non-African Americans > 60 (> 60)
[2019-10-05 09:09] LABS: Troponin I < 0.03 ng/mL (< 0.04)
[2019-10-05] MEDS ORDERED: Isovue-370 500 ML BOTTLE IVP ONE (09:19)
[2019-10-05] MEDS ORDERED: GI Cocktail 40 ML EACH PO ONE (11:12)
[2019-10-05] MEDS ORDERED: Ondansetron ODT 4 MG TAB.RAPDIS SL PRN (11:12)
[2019-10-05] MEDS ORDERED: Naloxone 0.4 MG/ML INJ IVP PRN (11:12)
[2019-10-05 14:29] LABS: Magnesium 1.8 mg/dL (1.6-2.6); Phosphorous 3.1 mg/dL (2.7-4.5)
[2019-10-05 15:56] LABS: Estimated Average Glucose 120 mg/dl
[2019-10-05] MEDS ORDERED: Perflutren Lipid Microsphere 1.3 ML in 0.9 % Sodium Chloride 8.7 ML IVP ONE (17:29)
[2019-10-05] MEDS ORDERED: Aspirin Enteric Coated 81 MG Tablet PO SCH (21:00)
[2019-10-05] MEDS: Metoprolol XL (24 HR) Succ 25 MG TAB.ER.24H PO SCH (21:12)
[2019-10-05] MEDS: Apixaban 5 MG TABLET PO SCH (21:12)
[2019-10-06 06:01] LABS: Basophils % 0.4 %; Eosinophils # 0.1 K/mcL (0.0-0.6); Eosinophils % 1.2 %; Hematocrit 43.3 % (37.5-50.1); Immature Granulocytes % 0.3 % (0-4); Lymphocytes # 1.1 K/mcL (0.6-4.6); Lymphocytes % 15.7 %; Mean Corpuscular Hemoglobin 30.7 pg (28.0-33.3); Mean Corpuscular Volume 92.9 fL (83.0-100.0); Mean Platelet Volume 9.9 fL (9.4-12.4); Monocytes # 0.8 K/mcL (0.0-1.3); Monocytes % 11.4 %; Neutrophils # 4.9 K/mcL (1.6-8.9); Platelet Count 192 K/mcL (140-400); Red Blood Count 4.66 M/mcL (4.19-5.50); Red Cell Distribution Width 12.9 % (11.5-14.5); White Blood Count 6.9 K/mcL (4.3-11.1)
[2019-10-06 06:04] LABS: Hemoglobin 14.3 g/dL (12.9-16.9); INR 1.5; Prothrombin Time 16.8 Seconds (9.4-12.1)
[2019-10-06 06:24] LABS: Alanine Aminotransferase 8 Units/L (7-52); Albumin 3.6 g/dL (3.5-5.7); Albumin/Globulin Ratio 1.4 (1.1-2.2); Alkaline Phosphatase 70 Units/L (34-104); Aspartate Amino Transferase 12 Units/L (13-39); BUN/Creatinine Ratio 17 (6-26); Bilirubin,Total 1.1 mg/dL (0.3-1.0); Blood Urea Nitrogen 18 mg/dL (8-23); Calcium 9.4 mg/dL (8.6-10.3); Carbon Dioxide 30 mEq/L (23-29); Chloride 100 mEq/L (98-107); Globulin 2.5 g/dL (2.4-3.5); Glucose 117 mg/dL (70-105); Osmolality,Calculated 293 (280-300); Potassium 3.5 mEq/L (3.5-5.1); Sodium 140 mEq/L (136-145); Total Protein 6.1 g/dL (6.4-8.9); eGFR For African Americans > 60 (> 60); eGFR For Non-African Americans > 60 (> 60)
[2019-10-06 06:36] LABS: Bilirubin,Urine Negative (Negative); Blood,Urine Negative (Negative); Clarity,Urine Clear (Clear); Color,Urine Yellow (Yellow); Glucose,Urine (UA) Normal (Normal); Ketones,Urine Negative (Negative); Leukocyte Esterase,Urine Negative (Negative); Nitrite,Urine Negative (Negative); Protein,Urine Negative (Neg-Trace); Specific Gravity,Urine 1.022 (1.010-1.025); Urobilinogen,Urine Normal (Normal)
[2019-10-06 07:38] VITALS: BP 116/75
[2019-10-06 08:00] LABS: Amphetamine Screen,Urine Negative ng/mL (Cutoff=1000); Barbiturate Screen,Urine Negative ng/mL (Cutoff=200); Benzodiazepines Screen,Urine Negative ng/mL (Cutoff=200); Cannabinoid Screen,Urine Negative ng/mL (Cutoff = 50); Cocaine Screen,Urine Negative ng/mL (Cutoff= 300); Opiate Screen,Urine Negative ng/mL (Cutoff=300); Phencyclidine Screen,Urine Negative ng/mL (Cutoff=25)
[2019-10-06] MEDS ORDERED: amLODIPine 5 MG TABLET PO SCH (09:00)
[2019-10-06] MEDS ORDERED: Regadenoson 0.4 MG/5 ML SYRINGE IVP ONE (10:18)
[2019-10-06] MEDS: Metoprolol XL (24 HR) Succ 25 MG TAB.ER.24H PO SCH (12:51)
[2019-10-06] MEDS: Apixaban 5 MG TABLET PO SCH (12:51)
== END 2019-10-06 14:41 | disposition home or self-care (01) ==
LOC: EMEROOARM 08:10 → 3BNU 08:10
PROVIDERS: ADMIT Internal Medicine; ATTEND Internal Medicine